=== PATIENT | male | born 1995 | race Caucasian/White ===

== ENCOUNTER 2021-04-14 15:27 | Emergency (ER) | payer OTHER, BC ==
[2021-04-14] MEDS ORDERED: Ondansetron 4 MG/2 ML SDV IV ONE ×2 (15:46→17:00)
[2021-04-14] MEDS ORDERED: HYDROmorphone 1 MG/ML Syringe IVPUSH ONE ×2 (15:46→16:33)
[2021-04-14] MEDS ORDERED: Lidocaine 1% 30 ML SDV INJECT ONE (15:47)
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
--- NOTE | 2021-04-14 18:00 | CR ---
PROCEDURE INFORMATION: Exam: XR Right Shoulder Exam date and time: 04/14/2021 5:29 PM Age: 45 years old Clinical indication: Other: Post reduction TECHNIQUE: Imaging protocol: XR Right shoulder. Views: 2 or more views. COMPARISON: CR Shoulder Comp Rt 04/14/2021 4:16 PM FINDINGS: Bones/joints: Good gross alignment. Greater tuberosity fracture again noted Soft tissues: Normal. IMPRESSION: Reduction with now good gross alignment.
== END 2021-04-14 19:05 | disposition home or self-care (01) ==
LOC: EDUNIT# → DL.ED 15:27
DX: S42.251A Displaced fracture of greater tuberosity of right humerus, initial encounter for closed fracture (principal); Z91.030 Bee allergy status; V63.5XXA Driver of heavy transport vehicle injured in collision with car, pick-up truck or van in traffic accident, initial encounter
CPT/HCPCS: 23650; 73030; 96374; 96375; 96376; 99283; J1170; J2405